=== PATIENT | female | born 1945 | race Caucasian/White ===

== ENCOUNTER → 2017-05-17 | Outpatient (CLI) | payer OTHER ==
[~2017-05-17] MED LIST: LISI-461 PO; LRT5 PO; SERT-234 PO
== END | disposition home or self-care (01) ==
LOC: C.PATHSPEC 11:32
PROVIDERS: ATTEND Dentist Oral and Maxillofacial Surgery
DX: K13.6 Irritative hyperplasia of oral mucosa (principal); L08.89 Other specified local infections of the skin and subcutaneous tissue; K06.1 Gingival enlargement